=== PATIENT | male | born 1950 | race Caucasian/White ===

== ENCOUNTER 2016-07-24 09:48 | Day surgery (SDC) | payer BC ==
[~2016-07-24] VITALS: Ht 185.4 cm; Wt 121.1 kg
[2016-07-24] MEDS ORDERED: DABI150C PO (10:57)
[2016-07-24] MEDS ORDERED: FENO135C PO (10:57)
[2016-07-24] MEDS ORDERED: ATOR20TA PO (10:57)
[2016-07-24] MEDS ORDERED: SOTA80TA PO (10:57)
[2016-07-24] MEDS ORDERED: DILT360C27 PO (10:57)
[2016-07-24] MEDS ORDERED: FENTANYL CITRATE/PF 50MCG/ML 2ML VIAL ONE (11:51)
[2016-07-24] MEDS ORDERED: MIDAZOLAM HCL 5 MG/5 ML VIAL ONE (11:52)
[2016-07-24] MEDS ORDERED: LIDOCAINE HCL 2% JELLY 5ML ONE (12:09)
[2016-07-24] MEDS ORDERED: TETRACAINE/BENZOCAINE/BUTAMBEN 20 GM SPRAY MM ONE (12:09)
== END 2016-07-24 14:55 | disposition home or self-care (01) ==
LOC: CARD 09:48
PROVIDERS: ATTEND Specialist
DX: I48.0 Paroxysmal atrial fibrillation (principal); I48.92 Unspecified atrial flutter; I10 Essential (primary) hypertension; I25.10 Atherosclerotic heart disease of native coronary artery without angina pectoris; E78.5 Hyperlipidemia, unspecified
CPT/HCPCS: 92960; 93005; 93312; J2250; J3010

== ENCOUNTER 2019-02-17 09:51 | Day surgery (SDC) | payer MEDICARE, BC ==
[~2019-02-17 09:51] MED LIST: ATOR20TA PO; DABI150C PO; DILT360C27 PO; FENO135C PO; SOTA80TA PO
[2019-02-17] MEDS ORDERED: DILT360C18 MT (11:26)
[2019-02-17] MEDS ORDERED: ATOR40TA70 MT (11:26)
[2019-02-17] MEDS ORDERED: ASPI-1393 PO (11:26)
[2019-02-17] MEDS ORDERED: FENO145T36 MT (11:26)
[2019-02-17] MEDS ORDERED: APIX5TAB MT (11:26)
[2019-02-17] MEDS ORDERED: LOSA25TA26 PO (11:26)
[2019-02-17] MEDS ORDERED: SOTA80TA25 PO (11:26)
[2019-02-17] MEDS ORDERED: MIDAZOLAM HCL 2 MG/2 ML VIAL ONE (11:53)
[2019-02-17] MEDS ORDERED: FENTANYL CITRATE/PF 50MCG/ML 2ML VIAL ONE (11:53)
[2019-02-17] MEDS ORDERED: LIDOCAINE HCL 2% JELLY 5ML ONE (11:54)
[2019-02-17] MEDS ORDERED: TETRACAINE/BENZOCAINE/BUTAMBEN 20 GM SPRAY MM ONE (12:01)
[2019-02-17] MEDS ORDERED: ACETAMINOPHEN 325MG TABLET PO PRN (12:30)
[2019-02-17] MEDS ORDERED: ONDANSETRON HCL 4MG/2ML INJ IV PRN (12:30)
== END 2019-02-17 16:00 | disposition home or self-care (01) ==
LOC: CARD 09:51
PROVIDERS: ATTEND Specialist
DX: I48.92 Unspecified atrial flutter (principal); I10 Essential (primary) hypertension; I25.10 Atherosclerotic heart disease of native coronary artery without angina pectoris; I49.3 Ventricular premature depolarization; E78.5 Hyperlipidemia, unspecified; E11.9 Type 2 diabetes mellitus without complications; E66.09 Other obesity due to excess calories; E05.90 Thyrotoxicosis, unspecified without thyrotoxic crisis or storm; Z79.01 Long term (current) use of anticoagulants; Z79.899 Other long term (current) drug therapy; Z79.82 Long term (current) use of aspirin; Z82.49 Family history of ischemic heart disease and other diseases of the circulatory system; Z88.8 Allergy status to other drugs, medicaments and biological substances
CPT/HCPCS: 92960; 93005; 93312; J2250; J3010

== ENCOUNTER → 2020-04-24 | Outpatient (CLI) | payer MEDICARE, BC ==
[~2020-04-24] MED LIST changes: +APIX5TAB MT; +ASPI-1497 PO; -ATOR20TA PO; +ATOR40TA70 MT; +DILT360C18 MT; +FENO145T25 MT; +LOSA25TA26 PO; +SOTA80TA25 PO
== END | disposition home or self-care (01) ==
LOC: LAB 10:29
PROVIDERS: ATTEND Specialist
DX: Z01.812 Encounter for preprocedural laboratory examination (principal); R05 Cough; Z20.828 Contact with and (suspected) exposure to other viral communicable diseases
CPT/HCPCS: C9803; U0003

== ENCOUNTER → 2020-04-26 | Day surgery (SDC) | payer MEDICARE, BC ==
[~2020-04-26] MED LIST changes: +ACETAMINOPHEN 325MG TABLET PO PRN; +ATROPINE SULFATE 1MG/10ML SYR IV PRN; +FENTANYL CITRATE/PF 50MCG/ML 2ML VIAL ONE; +FENTANYL CITRATE/PF 50MCG/ML 5ML VIAL ONE; +LIDOCAINE HCL 2% JELLY 5ML ONE; +MIDAZOLAM HCL 2 MG/2 ML VIAL ONE; +MIDAZOLAM HCL 5 MG/5 ML VIAL ONE; +ONDANSETRON HCL 4MG/2ML INJ IV PRN; +TETRACAINE/BENZOCAINE/BUTAMBEN 20 GM SPRAY MM ONE
== END | disposition home or self-care (01) ==
LOC: CARD 06:13
PROVIDERS: ATTEND Specialist
DX: I48.91 Unspecified atrial fibrillation (principal); I48.92 Unspecified atrial flutter; I34.0 Nonrheumatic mitral (valve) insufficiency; I10 Essential (primary) hypertension; E78.5 Hyperlipidemia, unspecified; I25.10 Atherosclerotic heart disease of native coronary artery without angina pectoris; E66.9 Obesity, unspecified; R73.9 Hyperglycemia, unspecified; Z82.49 Family history of ischemic heart disease and other diseases of the circulatory system; Z88.8 Allergy status to other drugs, medicaments and biological substances; Z79.82 Long term (current) use of aspirin; Z79.899 Other long term (current) drug therapy
CPT/HCPCS: 92960; 93005; 93312; J2250; J3010